=== PATIENT | female | born 1995 | race Caucasian/White ===

== ENCOUNTER 2022-09-12 10:56 | Outpatient (CLI) | payer MEDICAID, SELFPAY ==
--- NOTE | 2022-09-12 11:07 | US_ITS ---
WS: [id number] ULTRASOUND LEFT BREAST HISTORY: LEFT BREAST LUMP, 27-year-old. COMPARISON: None available. TECHNIQUE: 2-D and Doppler. Palpable area LEFT breast at 1:00, 4 cm from the nipple corresponds to a simple cyst measuring 4 x 5. 3 mm. No solid mass. No shadowing. US/US breast LT limited* [id number] IMPRESSION: BI-RADS: 2-Benign FOLLOW-UP: Age 38 Palpable area LEFT breast corresponds to a simple cyst.
== END 2022-09-12 10:57 | disposition home or self-care (01) ==
LOC: RAD 11:02
PROVIDERS: PCP Nurse Practitioner Family; Visit Provider Nurse Practitioner Family
DX: N63.21 Unspecified lump in the left breast, upper outer quadrant (principal)
CPT/HCPCS: 76642

== ENCOUNTER → 2023-04-25 09:52 | Outpatient (BNVA) | payer MEDICAID, SELFPAY | PROVIDERS: PCP Nurse Practitioner Family; Visit Provider Nurse Practitioner Family | DX: R05.9 Cough, unspecified; J02.9 Acute pharyngitis, unspecified | CPT/HCPCS: 87400; 87426; 87880 ==

== ENCOUNTER 2023-05-10 12:58 | Outpatient (CLI) | payer MEDICAID, SELFPAY ==
[2023-05-10] MEDS: iohexol 350 mg/mL 500 mL Btl (per mL) IV (14:25)
[2023-05-10] MEDS: iohexol 350 mg/mL 500 mL Btl (per mL) PO (14:25)
--- NOTE | 2023-05-10 14:30 | CT_ITS ---
WS: [id number] CT ABDOMEN AND PELVIS WITH CONTRAST HISTORY: umbilical hernia TECHNIQUE: Imaging performed of the abdomen and pelvis with IV contrast. Single phase imaging of the abdomen. Coronal and sagittal reformats are submitted. All CT scans at [facility] use at [address] one of these dose optimization techniques: automated exposure control; mA and/or kV adjustment per patient size (includes targeted exams where dose is matched to clinical indication); or iterative re construction. IV CONTRAST: Omnipaque 350; 100 mL IV. Oral contrast: Yes. DLP: 864.48 mGy.cm COMPARISON: None available. Lower thorax: Lung bases are clear. Heart is normal size. No hiatal hernia. Liver/biliary system: Normal size with no intrahepatic dilatation. Gallbladder: Normal. No gallstones or wall thickening. No pericholecystic fluid. Pancreas: Normal size pancreas and pancreatic duct. No adjacent inflammation. Spleen: Normal size spleen. No mass or infarct. Adrenal glands: Normal. Right kidney: Normal. Left kidney: Normal. Aorta: Normal. Lymphadenopathy: None. Free fluid: None. GI tract: Unremarkable. Abdominal wall: Ventral abdominal wall hernia. Mild separation of the linea alba by 1.4 cm. Herniatio n of omentum only. Pelvis: No free fluid or adenopathy within the pelvis. Bones: Unremarkable. IMPRESSION: 1. Ventral abdominal wall hernia contains omentum only. 2. Otherwise negative CT abdomen and pelvis.
== END 2023-05-10 12:59 | disposition home or self-care (01) ==
LOC: RAD 12:59
PROVIDERS: PCP Nurse Practitioner Family; Visit Provider Surgery
DX: K43.9 Ventral hernia without obstruction or gangrene (principal); K42.9 Umbilical hernia without obstruction or gangrene
CPT/HCPCS: 74177; Q9967

== ENCOUNTER → 2023-09-01 13:29 | Outpatient (BNVA) | payer MEDICAID, SELFPAY | PROVIDERS: PCP Nurse Practitioner Family; Visit Provider Nurse Practitioner Family | DX: R42 Dizziness and giddiness (principal) | CPT/HCPCS: 80053; 82962; 84443; 85025; 87426 ==

== ENCOUNTER → 2023-09-05 16:09 | Outpatient (BNVA) | payer MEDICAID, SELFPAY | PROVIDERS: PCP Nurse Practitioner Family; Visit Provider Nurse Practitioner Family | DX: J39.2 Other diseases of pharynx (principal) | CPT/HCPCS: 87071; 87880 ==

== ENCOUNTER → 2023-12-18 13:00 | Outpatient (BNVA) | payer MEDICAID, SELFPAY | PROVIDERS: PCP Nurse Practitioner Family; Visit Provider Nurse Practitioner Family | DX: Z12.4 Encounter for screening for malignant neoplasm of cervix (principal) | CPT/HCPCS: 88175 ==

== ENCOUNTER → 2024-04-25 15:15 | Outpatient (BNVA) | payer BC, MEDICAID, SELFPAY | PROVIDERS: PCP Nurse Practitioner Family; Visit Provider Family Medicine | DX: R10.9 Unspecified abdominal pain (principal); R10.11 Right upper quadrant pain; R11.0 Nausea | CPT/HCPCS: 80053; 81000; 82977; 83690; 85025; 86140 ==

== ENCOUNTER → 2024-06-19 10:55 | Outpatient (BNVA) | payer BC, MEDICAID, SELFPAY | PROVIDERS: PCP Nurse Practitioner Family; Visit Provider Nurse Practitioner Family | DX: R30.9 Painful micturition, unspecified (principal); N39.0 Urinary tract infection, site not specified | CPT/HCPCS: 81000; 87086 ==